=== PATIENT | male | born 1995 | race African-American/Black ===

== ENCOUNTER 2016-11-17 23:29 | Emergency (ER) | payer OTHER ==
[2016-11-18] MEDS ORDERED: NO HOME MEDICATION XX (00:56)
[2016-11-18 02:05] LABS: URINE BILIRUBIN NEGATIVE (NEG); URINE BLOOD NEGATIVE (NEG); URINE GLUCOSE (UA) NEGATIVE (NEG); URINE KETONE NEGATIVE (NEG); URINE LEUKOCYTE ESTERASE POSITIVE (NEG); URINE NITRITE NEGATIVE (NEG); URINE PROTEIN SMALL (NEG); URINE SPECIFIC GRAVITY 1.015 (1.003-1.030)
[2016-11-18 02:08] LABS: URINE APPEARANCE HAZY; URINE COLOR YELLOW
[2016-11-18 02:17] LABS: URINE BACTERIA 1+; URINE EPITHELIAL CELLS RARE /[HPF] (0-10); URINE MUCUS 1+; URINE RBC 0 /[HPF] (0-5)
== END 2016-11-18 03:13 ==
LOC: EDMED 23:29
PROVIDERS: Nurse Practitioner Family
DX: Z20.2 Contact with and (suspected) exposure to infections with a predominantly sexual mode of transmission (principal); F17.210 Nicotine dependence, cigarettes, uncomplicated
CPT/HCPCS: J0696